=== PATIENT | female | born 1995 | race Caucasian/White ===

== ENCOUNTER 2017-03-08 11:45 | Observation (INO) | payer OTHER ==
[2017-03-08] MEDS ORDERED: NS 1,000 ML IV ONE ×3 (12:15→13:06)
[2017-03-08 12:43] LABS: PLATELET COUNT 317 10^3/uL (150-400)
--- NOTE | 2017-03-08 13:05 | EDPHY ---
H & P Time Seen by Provider: 03/08/17 12:21 HPI/ROS: Chief complaint. Possible DKA HPI. 21-year-old female insulin-dependent diabetic presents with concerns for diabetic ketoacidosis. She has an insulin pump and last night noticed that her insulin pump was occluded. Her blood sugar was greater than 600 about 7:30 p.m. last night. She also had vomiting 7 or 8 times. She disconnected her insulin pump and took 20 U of Humalog which brought her sugar down to 515. She continued to have some ketones. She subsequently took 8 U more of Humalog which brought sugar down to 360. She then subsequently took 10 more units of Humalog. At 11:15 p.m. she took 40 U of long acting Tresiba. She had some chills last night. She is otherwise really not been sick. Her pump is currently turned off. She currently feels tired. She has had DKA previously last being in 2012. She is normally cared for at the [facility] ROS Constitutional. Chills and tired Eyes. no problems with vision ENT. no sore throat, no nasal drainage Cardiovascular. no chest pain Respiratory. no shortness of breath, no cough Abdominal. Nausea and vomiting last night. No abdominal pain . no problems urinating MS. no calf pain/swelling, no neck/back pain, no joint pain Skin. no rash Lymph. no swollen glands Neuro. no headache, no dizziness, no difficulty walking or with speech Past Medical/Surgical History: Insulin-dependent diabetes with episode of DKA, attention deficit hyperactivity disorder, depression Social History: Single, nonsmoker, no alcohol Smoking Status: Never smoked Physical Exam: General Appearance: Alert well-developed female moderate distress vital signs show temp 37.1degrees, heart rate 130, blood pressure 94/67 Eyes: Pupils equal and round no pallor or injection. ENT, pharynx without injection. Mucous membranes are slightly dry Respiratory: There are no retractions, lungs are clear to auscultation. Cardiovascular: Regular rate and rhythm. Gastrointestinal: Abdomen is soft and nontender, no masses, bowel sounds normal. Neurological: Awake and alert, sensory and motor exams grossly normal. Skin: Warm and dry, no rashes. Musculoskeletal: Neck is supple nontender. Extremities symmetrical, full range of motion. Psychiatric: Patient is oriented X 3, there is no agitation. Constitutional: Initial Vital Signs Temperature (C) 37.1 C 03/08/17 11:50 Heart Rate 130 H 03/08/17 11:50 Respiratory Rate 18 03/08/17 11:50 Blood Pressure 94/67 L 03/08/17 11:50 O2 Sat (%) 99 03/08/17 11:50 O2 Delivery Mode Room Air Allergies/Adverse Reactions: shellfish derived Allergy (Intermediate, Verified 07/07/15 20:36) Vomiting peanut Allergy (Intermediate, Uncoded 07/07/15 20:36) Other-Enter Comments Home Medications: Medication Instructions Recorded Insulin Lispro [Humalog] 0 unit SQ AD 11/01/12 LOSEASONIQUE TABLET 01/30/15 Metformin HCl 01/30/15 Herbals/Supplements -Info Only 07/07/15 Strattera 07/07/15 Wellbutrin Xl 07/07/15 Zoloft 50mg (RX) 07/07/15 Insulin Lispro [Humalog] 12/02/15 Tresiba Flextouch U-100 12/02/15 Medical Decision Making - Diagnostics Imaging Results: Chest x-ray interpreted by me shows possible mild fluid overload but no evidence for pneumonia Procedures: IV normal saline with initial target of 2-3 L of saline. I-STAT glucose 294 ED Course/Re-evaluation: Re-evaluation 2:00 p.m. patient has had 2 L of saline still no urge to urinate. Now fever 39 degrees. Influenza swabs obtained. One-view chest x-ray ordered. Tylenol ordered Parents and I and patient discussed laboratory evaluation including recommendation for admission. They expressed understanding and agreement Patient is given 3rd L of saline. 5 U of regular insulin IV I consulted and discussed the case with Dr. Garza, hospitalist, who agrees with care and admission. Differential Diagnosis: This appears to be partially treated DKA. Her blood sugar is better. She still hypovolemic as she has not urinated after 2 and 0.5 L of saline. She still is somewhat acidotic and has elevated anion gap. She has long-acting insulin that will go till about 11:00 p.m. tonight. We will treat her with fluids, IV insulin possible insulin drip. She has a fever and this may represent urinary tract infection, pneumonia, influenza Critical Care Time: Critical care time exclusive procedures 40 min - Data Points Laboratory Results: Laboratory Results 03/08/17 12:13 03/08/17 12:13 03/08/17 03/08/17 03/08/17 14:40 13:00 12:13 WBC RBC Hgb POC Hgb Hct POC Hct MCV MCH MCHC RDW Plt Count MPV Neut % (Auto) Lymph % (Auto) [place] % (Auto) Eos % (Auto) Baso % (Auto) Nucleat RBC Rel Count Absolute Neuts (auto) Absolute Lymphs (auto) Absolute Monos (auto) Absolute Eos (auto) Absolute Basos (auto) Absolute Nucleated RBC Immature Gran % Immature Gran # Puncture Site VENOUS Patient Temperature 37.0 DEGREES DEGREES VBG pH 7.34 (7.31-7.42) VBG HCO3 16 mEQ/L L mEQ/L (22-26) VBG Total CO2 17 mEq/L L mEq/L (23-27) VBG O2 Saturation 61 % L % (65-75) VBG Base Excess -7.9 mEq/L L mEq/L (-2.5-2.5) Mixed VBG pCO2 31 mmHg L mmHg (40-44) Mixed VBG pO2 35 mmHg mmHg (35-40) POC Sodium Sodium POC Potassium Potassium POC Chloride Chloride Carbon Dioxide Anion Gap POC BUN BUN Creatinine POC Creatinine Estimated GFR Glucose POC Glucose Calcium Phosphorus Magnesium Total Bilirubin AST ALT Alkaline Phosphatase Total Protein Albumin Beta-Hydroxybutyrate Beta HCG, Qual NEGATIVE Nasal Influenza A PCR Pending Nasal Influenza B PCR Pending 03/08/17 03/08/17 03/08/17 12:13 12:13 12:10 WBC 12.22 10^3/uL H 10^3/uL (3.80-9.50) RBC 4.71 10^6/uL 10^6/uL (4.18-5.33) Hgb 15.4 g/dL g/dL (12.6-16.3) POC Hgb 16.0 gm/dL gm/dL (12.6-16.3) Hct 42.5 % % (38.0-47.0) POC Hct 47 % % (38-47) MCV 90.2 fL fL (81.5-99.8) MCH 32.7 pg pg (27.9-34.1) MCHC 36.2 g/dL g/dL (32.4-36.7) RDW 11.9 % % (11.5-15.2) Plt Count 317 10^3/uL 10^3/uL (150-400) MPV 10.5 fL fL (8.7-11.7) Neut % (Auto) 92.3 % H % (39.3-74.2) Lymph % (Auto) 4.1 % L % (15.0-45.0) [place] % (Auto) 2.7 % L % (4.5-13.0) Eos % (Auto) 0.0 % L % (0.6-7.6) Baso % (Auto) 0.4 % % (0.3-1.7) Nucleat RBC Rel Count 0.0 % % (0.0-0.2) Absolute Neuts (auto) 11.28 10^3/uL H 10^3/uL (1.70-6.50) Absolute Lymphs (auto) 0.50 10^3/uL L 10^3/uL (1.00-3.00) Absolute Monos (auto) 0.33 10^3/uL 10^3/uL (0.30-0.80) Absolute Eos (auto) 0.00 10^3/uL L 10^3/uL (0.03-0.40) Absolute Basos (auto) 0.05 10^3/uL 10^3/uL (0.02-0.10) Absolute Nucleated RBC 0.00 10^3/uL 10^3/uL (0-0.01) Immature Gran % 0.5 % % (0.0-1.1) Immature Gran # 0.06 10^3/uL 10^3/uL (0.00-0.10) Puncture Site Patient Temperature VBG pH VBG HCO3 VBG Total CO2 VBG O2 Saturation VBG Base Excess Mixed VBG pCO2 Mixed VBG pO2 POC Sodium 133 mEq/L L mEq/L (135-145) Sodium 132 mEq/L L mEq/L (135-145) POC Potassium 3.2 mEq/L L mEq/L (3.3-5.0) Potassium 3.6 mEq/L mEq/L (3.5-5.2) POC Chloride 95 mEq/L L mEq/L (97-110) Chloride 94 mEq/L L mEq/L (97-110) Carbon Dioxide 17 mEq/l L mEq/l (22-31) Anion Gap 21 mEq/L H mEq/L (8-16) POC BUN 19 mg/dL mg/dL (7-23) BUN 19 mg/dL mg/dL (7-23) Creatinine 0.7 mg/dL mg/dL (0.6-1.0) POC Creatinine 0.7 mg/dL mg/dL (0.6-1.0) Estimated GFR > 60 Glucose 285 mg/dL H mg/dL (70-100) POC Glucose 294 mg/dL H mg/dL (70-100) Calcium 8.9 mg/dL mg/dL (8.5-10.4) Phosphorus 3.7 mg/dL mg/dL (2.5-4.5) Magnesium 1.5 mg/dL L mg/dL (1.6-2.3) Total Bilirubin 1.2 mg/dL mg/dL (0.1-1.4) AST 29 IU/L IU/L (14-46) ALT 40 IU/L IU/L (9-52) Alkaline Phosphatase 95 IU/L IU/L (38-126) Total Protein 6.6 g/dL g/dL (6.3-8.2) Albumin 4.1 g/dL g/dL (3.5-5.0) Beta-Hydroxybutyrate Pending Beta HCG, Qual Nasal Influenza A PCR Nasal Influenza B PCR Medications Given: Discontinued Medications Acetaminophen (Tylenol) 1,000 mg PO EDNOW ONE Stop: 03/08/17 14:21 Last Admin: 03/08/17 14:41 Dose: 1,000 mg Sodium Chloride (Ns) 1,000 mls @ 0 mls/hr IV EDNOW ONE; Wide Open PRN Reason: Protocol Stop: 03/08/17 12:16 Last Admin: 03/08/17 12:15 Dose: 1,000 mls Sodium Chloride (Ns) 1,000 mls @ 0 mls/hr IV ONCE ONE; Wide Open PRN Reason: Protocol Stop: 03/08/17 12:49 Last Admin: 03/08/17 13:12 Dose: 1,000 mls Sodium Chloride (Ns) 1,000 mls @ 0 mls/hr IV ONCE ONE; Wide Open PRN Reason: Protocol Stop: 03/08/17 13:07 Last Admin: 03/08/17 13:50 Dose: 1,000 mls Insulin Human Regular (Humulin R) 5 unit IVP EDNOW ONE Stop: 03/08/17 14:31 Last Admin: 03/08/17 14:44 Dose: 5 units Point of Care Test Results: 03/08/17 12:10 POC Sodium 133 L POC Potassium 3.2 L POC Chloride 95 L POC BUN 19 POC Creatinine 0.7 POC Glucose 294 H Departure - Departure Disposition: [facility] Inpatient Acute Clinical Impression: DKA (diabetic ketoacidoses) Qualifiers: Diabetes mellitus type: type 1 Diabetes mellitus complication detail: without coma Qualified Code(s): E10.10 - Type 1 diabetes mellitus with ketoacidosis without coma Condition: Fair Referrals: MARY JO HARRINGTON [Other] - As per Instructions
[2017-03-08] MEDS ORDERED: ACETAMINOPHEN 500 MG TAB PO ONE (14:20)
[2017-03-08] MEDS ORDERED: INSULIN REGULAR HUMAN 100 UNIT/ML UNIT IVP ONE (14:30)
[2017-03-08] MEDS ORDERED: ONDANSETRON 4 MG/2 ML VIAL IVP ONE (15:48)
[2017-03-08] MEDS ORDERED: POTASSIUM Cl (KCl) 100 ML IV SCH (16:00)
[2017-03-08] MEDS ORDERED: D50W 25 GM/50 ML SYR IVP PRN ×2 (16:42→19:11)
[2017-03-08] MEDS ORDERED: ACETAMINOPHEN 325 MG TAB PO PRN (16:42)
[2017-03-08] MEDS ORDERED: ONDANSETRON 4 MG/2 ML VIAL IVP PRN (16:42)
[2017-03-08] MEDS ORDERED: ONDANSETRON DISINTEGRATING 4 MG TAB PO PRN (16:42)
[2017-03-08] MEDS ORDERED: NS 500 ML IV SCH (16:45)
[2017-03-08] MEDS: POTASSIUM Cl (KCl) 10 MEQ in NS 100 ML IV SCH ×4 (16:47→22:06)
[2017-03-08] MEDS ORDERED: PROTOCOL POTASSIUM 1 DOSE MISC PRN (16:59)
[2017-03-08] MEDS ORDERED: PROTOCOL MAGNESIUM 1 DOSE IV PRN (16:59)
[2017-03-08] MEDS ORDERED: NON-FORMULARY NEW DRUG (Insulin Lispro [Humalog] 0 UNIT) SQ SCH (17:00)
[2017-03-08] MEDS ORDERED: INSULIN LISPRO 100 UNIT/ML SC SCH (17:30)
--- NOTE | 2017-03-08 17:48 | GHP ---
[f rep st] HISTORY AND PHYSICAL DATE OF ADMISSION: 03/08/2017 CHIEF COMPLAINT: Nausea, vomiting and hyperglycemia. HISTORY OF PRESENT ILLNESS: The patient is a 21-year-old female with a history of type 1 diabetes, who presents to the emergency department with elevated blood sugars and an insulin pump malfunction. She states she has not been compliant with taking her bolus insulin dosing. Yesterday, she noticed her pump was not working and it seemed as though there was an occlusion. Her blood sugars have been 400-500 over the past several days. Yesterday, her blood sugar was over 600, and she began to have nausea and vomiting. She states she vomited 6-8 times. There was no hematemesis or coffee-ground emesis. Due to the malfunction of her pump, she discontinued it and took 40 units of her long- acting insulin that she took in the past while on a vacation from her pump. She then required multiple bolus doses of Humalog, totaling over 35 units yesterday. This brought her blood sugar down to the 300s. She has had no further nausea or vomiting today. She denies fevers, chills, cough, chest pain , or upper respiratory symptoms. She denies diarrhea or urinary symptoms. EMERGENCY DEPARTMENT LABS: Labs revealed a blood sugar of 203. She had a low potassium, low sodium with a low serum bicarb and an elevated anion gap. An ABG was drawn that showed a normal pH. She received 3 L normal saline boluses and is admitted to the hospital for further management of her DKA. PAST MEDICAL HISTORY: 1. Type 1 diabetes on an insulin pump with poor compliance. She states her A1c 's in the past have been over 14, but that it was down as of January, but still in the double digits. She is followed at the [facility] by Dr. Carrillo. 2. Depression. 3. ADHD. MEDICATIONS: Please see ipsy for complete updated outpatient medication list. ALLERGIES: Shellfish, gluten, and peanuts. FAMILY HISTORY: Reviewed and noncontributory. SOCIAL HISTORY: The patient is a C student studying music education. She also works at the [employer] She is a nonsmoker. REVIEW OF SYSTEMS: A 10-point review of systems was performed and is negative except as per HPI. OBJECTIVE: VITAL SIGNS: Temperature is 37.4, blood pressure 97/37, heart rate 97, respiratory rate 18, she is 97% on room air. GENERAL: The patient is awake , alert, and oriented, in no acute distress though she appears depressed. HEENT : Head is atraumatic, normocephalic. Pupils equal, round, react to light. Extraocular muscles are intact. Oropharynx clear. Mucous members are moist. NECK: Supple. There is no JVD. HEART: Regular rate and rhythm without murmur. LUNGS: Clear to auscultation bilaterally. ABDOMEN: Soft, nondistended, nontender with normoactive bowel sounds. EXTREMITIES: Without cyanosis, clubbing, or edema. NEUROLOGIC: Grossly nonfocal. She moves all 4 extremities. PSYCH: As above. She has a flat affect. LABORATORY DATA: Venous blood gas reveals a pH of 7.34, bicarb 16, and a pCO2 of 31. CBC reveals a white count of 12.2 with 92% neutrophils. Chem panel shows a sodium of 134, potassium 3.2, chloride 94, bicarb 17, anion gap is 21, creatinine 0.7, blood glucose 285. LFTs are normal. Beta hydroxybutyrate is positive at 3.85. Magnesium is low at 1.5. Influenza is negative. Chest x-ray is personally reviewed and interpreted. There is no obvious infiltrate. ASSESSMENT AND PLAN: The patient is a 21-year-old female with history of type 1 diabetes, who presents to the emergency department in diabetic ketoacidosis with nausea, vomiting and hyperglycemia. 1. Diabetic ketoacidosis. This is mild and I suspect was precipitated by her poor compliance and malfunctioning pump. No evidence of infection. She received 3 L of normal saline, 5 mg IV regular insulin in ED and her gap is now closed. She has long-acting insulin on board as she took Tarceva 40 units last night at 11 p.m. Will add bolus insulin sliding scale for now. She is going to troubleshoot her insulin pump by replacing the cartridge and changing her site. Once pump is working again, will plan to resume it at 2200. Will send an A1c. Continue IV fluid resuscitation. Electrolyte protocol for potassium and magnesium. Follow q6 hours basic metabolic panels and adjust her fluids as indicated. 2. Nausea, vomiting. This occurred with a blood sugar in the 5-600 range and likely the onset of diabetic ketoacidosis. She is no longer having nausea or vomiting. Consider outpatient gastric emptying study to evaluate for gastroparesis, which could provoke DKA. Will provide antiemetics and DKA management as above. 3. Hypotension. The patient's blood pressures have been 90s over 50s. She did have a low blood pressure of 80s over 30s, though on repeat was improved. She is afebrile and has no localizing symptoms of infection. UA neg, no PNA on CXR. I suspect this is volume depletion in the setting of poor oral intake and nausea and vomiting. We will continue IV fluid resuscitation as above and if her hypotension persists, send blood cultures, lactate, and a procalcitonin with further infectious workup as indicated. Observe off antibiotics for now. 4. Attention deficit hyperactivity disorder. We will continue her outpatient medications. 5. Depression. Will continue her Abilify. 6. Code status. Patient is full code. 7. DVT prophylaxis. Patient is low risk. We will place SCDs. 8. Disposition: Patient admitted to observation status. If her DKA continues to resolve, she may be a candidate for discharge home tomorrow. She will need close outpatient followup with her foot and ankle surgeon, Dr. Carrillo, at the [facility]. /[id number]/MODL MTDD
[2017-03-08] MEDS ORDERED: INSULIN PUMP, PATIENT OWN 1 EA MISC SCH ×2 (19:15→23:00)
[2017-03-08] MEDS: INSULIN LISPRO 100 UNIT/ML SC SCH ×2 (19:49→22:09)
[2017-03-08] MEDS: NS W/ 20 KCl/L 1,000 ML IV SCH (19:51)
[2017-03-08] MEDS ORDERED: ARIPiprazole 10 MG TAB PO SCH (21:00)
[2017-03-09] MEDS: NS W/ 20 KCl/L 1,000 ML IV SCH ×2 (01:23→08:00)
[2017-03-09 04:30] LABS: PLATELET COUNT 193 10^3/uL (150-400)
[2017-03-09] MEDS ORDERED: MAGNESIUM SULF 1 GM/DEXTROSE 100 ML IV ONE (10:57)
[2017-03-09] MEDS ORDERED: FLU VACC QS 2017-18 (3YR+)/PF 0.5 ML SYR (FLUARIX QUAD) IM ONE (10:58)
[2017-03-09 12:03] VITALS: BP 98/65; PULSE 102; RESP 18; TEMP 98.4; O2SAT 93
--- NOTE | 2017-03-09 14:08 | HOSPPROG ---
Hospitalist Progress Note Assessment/Plan: 21 yo F w DM1 historically poor control here w hyperglycemia not DKA no gap sugars in 100's home today see dc summary Subjective: sugars OK Objective: Vital Signs Temp Pulse Resp BP Pulse Ox 36.9 C 102 H 18 98/65 L 93 03/09/17 12:00 03/09/17 12:00 03/09/17 12:00 03/09/17 12:00 03/09/17 12:00 Laboratory Results 03/09/17 04:10 03/09/17 04:10 03/08/17 03/09/17 03/10/17 05:59 05:59 05:59 Intake Total 3600 3004 Output Total 800 1200 Balance 2800 1804 - Physical Exam Constitutional: no apparent distress, appears nourished Eyes: PERRL, anicteric sclera Ears, Nose, Mouth, Throat: moist mucous membranes, hearing normal Cardiovascular: regular rate and rhythym, no murmur, rub, or gallop Respiratory: no respiratory distress, no rales or rhonchi Gastrointestinal: normoactive bowel sounds, soft, non-tender abdomen Genitourinary: no bladder fullness, No lamar in urethra Skin: warm, normal color Musculoskeletal: full muscle strength Neurologic: AAOx3 Psychiatric: interacting appropriately ICD10 Worksheet Patient Problems: Problems Problem Status Onset DKA (diabetic ketoacidoses) Acute
--- NOTE | 2017-03-09 17:27 | GDS ---
[f rep st] DISCHARGE SUMMARY DISCHARGE DIAGNOSES: 1. Poorly controlled type 1 diabetes. 2. Possible diabetic ketoacidosis, mild. 3. Hyperglycemia. Please see admission history and physical by Dr. Paulina Garza. Patient presented with hyperglycemia . It sounds like she was not following her bolus regimen. There was some concern of pump malfunctio n or at least apparatus malfunction including tubing. The patient was placed on her pump here and sh alfonzo did well with blood sugars in the 100s. Her hemoglobin A1c returned at 10.5, which is an improveme nt for her. She has followup at [facility]. /[id number]/MODL
[2017-03-10] MEDS ORDERED: Lisdexamfetamine Dimesylate [Vyvanse] 30 MG PO SCH (09:00)
[2017-03-10] MEDS ORDERED: ADDERALL 10 MG TAB PO SCH (09:00)
== END 2017-03-09 15:48 | disposition home or self-care (01) ==
LOC: F3E 17:50
PROVIDERS: ADMIT Hospitalist; ATTEND Internal Medicine
DX: E10.65 Type 1 diabetes mellitus with hyperglycemia (principal); I95.9 Hypotension, unspecified; R11.2 Nausea with vomiting, unspecified; Z91.14 Patient's other noncompliance with medication regimen; F32.9 Major depressive disorder, single episode, unspecified; Z79.4 Long term (current) use of insulin; Z96.41 Presence of insulin pump (external) (internal); Z23 Encounter for immunization
CPT/HCPCS: 71045; 90471; G0378; 82947-QW; 96374; G0008; J1815; J2405; J3475